=== PATIENT | female | born 1960 | race Caucasian/White ===

== ENCOUNTER → 2017-09-21 | Outpatient (CLI) | payer BC | END | disposition home or self-care (01) | LOC: MAMMO 01:33 | DX: Z12.31 Encounter for screening mammogram for malignant neoplasm of breast (principal) ==

== ENCOUNTER → 2018-10-10 | Outpatient (CLI) | payer BC | END | disposition home or self-care (01) | LOC: MAMMO 02:40 | DX: Z12.31 Encounter for screening mammogram for malignant neoplasm of breast (principal) ==

== ENCOUNTER → 2019-10-17 | Outpatient (CLI) | payer BC | END | disposition home or self-care (01) | LOC: MAMMO 00:34 | DX: Z12.31 Encounter for screening mammogram for malignant neoplasm of breast (principal) ==

== ENCOUNTER → 2020-10-19 | Outpatient (CLI) | payer BC | END | disposition home or self-care (01) | LOC: MAMMO 07:25 | PROVIDERS: ATTEND Obstetrics & Gynecology | DX: Z12.31 Encounter for screening mammogram for malignant neoplasm of breast (principal) ==

== ENCOUNTER → 2021-11-03 | Outpatient (CLI) | payer BC | END | disposition home or self-care (01) | LOC: MAMMO 07:05 | PROVIDERS: ATTEND Obstetrics & Gynecology | DX: Z12.31 Encounter for screening mammogram for malignant neoplasm of breast (principal) ==

== ENCOUNTER → 2022-11-23 | Outpatient (CLI) | payer BC | END | disposition home or self-care (01) | LOC: MAMMO 00:55 | PROVIDERS: ATTEND Obstetrics & Gynecology | DX: Z12.31 Encounter for screening mammogram for malignant neoplasm of breast (principal) ==

== ENCOUNTER → 2023-12-13 | Outpatient (CLI) | payer BC | END | disposition home or self-care (01) | LOC: MAMMO 02:50 | PROVIDERS: ATTEND Obstetrics & Gynecology | DX: Z12.31 Encounter for screening mammogram for malignant neoplasm of breast (principal) ==

== ENCOUNTER → 2024-12-25 | Outpatient (CLI) | payer BC | END | disposition home or self-care (01) | LOC: MAMMO 00:54 | PROVIDERS: ATTEND Nurse Practitioner Family | DX: Z12.31 Encounter for screening mammogram for malignant neoplasm of breast (principal); R92.333 Mammographic heterogeneous density, bilateral breasts ==